=== PATIENT | male | born 1945 | race Caucasian/White ===

== ENCOUNTER 2017-03-23 17:13 | Observation (INO) | payer BC, MEDICARE ==
[~2017-03-23] VITALS: Ht 190.5 cm; Wt 99.8 kg
[~2017-03-23 17:13] MED LIST: AMBIEN5 MG PO; ATENOLOL25 MG PO; BACTRIM DS1 TAB PO; CARAFATE1 G1 PO; CARAFATE1 GM PO; CELEBREX200 MG PO; GLUCOTROL5 MG PO; GLYBURIDE/METFO1 TAB PO; HYDROCO/APAP1 TA9 PO; HYDROMORPHON4 MG PO; JANUVIA100 MG PO; LANTUS100 MG/ML SC; LORTAB 7.57.5 MG/TAB OR; MORPHINE SUL30 M3 PO; PERCOCET1 TA2 PO; PHENERGAN25 MG/TAB PO; PREVACID30 M1 PO; RESTORIL15 M1 PO; TRAMADOL HYDROC50 MG PO; TRICOR145 MG PO; ZOCOR10 MG PO; [UNRECOGNIZED DRUG - CODE] PO; [UNRECOGNIZED DRUG - REMARK]
--- NOTE | 2017-03-23 17:35 | NUR ---
PT TO ROOM W/STEADY GAIT.
[2017-03-23 18:30] LABS: HEMATOCRIT 45.6 % (39.0-50.0); HEMOGLOBIN 15.6 g/dl (14.0-18.0); IMMATURE GRANULOCYTES 0.7 % (0.0-1.0); MEAN CELL VOLUME 87.2 fL CALC (80.0-100.0); MEAN CORPUSCULAR HGB 29.8 pG CALC (26.0-32.0); MEAN CORPUSCULAR HGB CONC 34.2 g/L CALC (32.0-36.0); NEUT# 6.14 thou/uL (1.82-7.42); RED BLOOD COUNT 5.23 mill/uL (4.70-6.10); RED CELL DISTRI WIDTH 11.9 % (11.5-15.5)
[2017-03-23 18:34] LABS: URINE BLOOD DIPSTICK NEGATIVE (NEGATIVE); URINE GLUCOSE - DIPSTICK 100 mg/dL (NEGATIVE); URINE KETONE TRACE mg/dL (NEGATIVE); URINE LEUK ESTERASE NEGATIVE (NEGATIVE); URINE NITRITE - DIPSTICK NEGATIVE (Negative); URINE PH 5.5 (4.5-8.0); URINE PROTEIN - DIPSTICK 30 mg/dL (NEG-TRACE); URINE SPECIFIC GRAVITY >=1.030
[2017-03-23 18:37] LABS: URINE BILIRUBIN - DIPSTICK NEGATIVE (NEGATIVE); URINE CLARITY HAZY; URINE COLOR DK. YELLOW
[2017-03-23 18:39] LABS: ALBUMIN 4.8 g/dL (3.2-5.0); ALKALINE PHOSPHATASE 47 u/l (38-126); AMYLASE 100 u/l (30-110); ANION GAP 21 (6-22 (CALC)); BILIRUBIN, TOTAL 1.4 mg/dL (0.0-1.4); BUN 17 mg/dL (8-23); BUN/CREATININE RATIO 16 (12-20 (CALC)); CALCIUM 10.6 mg/dL (8.4-10.2); CARBON DIOXIDE 22 mmol/l (22-30); CHLORIDE 104 mmol/l (95-108); CREATININE 1.1 mg/dL (0.7-1.3); GFR > 60 ML/MIN (>=60 (CALC)); GFR FOR AFR.AMER. > 60 ML/MIN (>=60 (CALC)); GLUCOSE 257 mg/dL (82-115); LIPASE 549 u/l (23-300); POTASSIUM 4.1 mmol/l (3.5-5.1); SGOT/AST 23 u/l (19-48); SGPT/ALT 27 u/l (11-66); SODIUM 143 mmol/l (137-146); TOTAL PROTEIN 8.2 g/dL (6.3-8.2)
[2017-03-23 18:40] LABS: URINE RBC 0-2 RBC/hpf (0-5); URINE WBC 0-2 WBC/hpf (0-5)
[2017-03-23 18:41] LABS: URINE AMORPH SEDIMENT FEW hpf (NONE-FER)
[2017-03-23 18:51] LABS: MYOGLOBIN 41 ng/mL (0 - 121)
--- NOTE | 2017-03-23 20:00 | NUR ---
PT HAS BEEN MEDICATED FOR PAIN TWICE DURING HIS STAY, HAS RECEIVED ALSO ABX AND IVF. PAIN MED DOES HELP FOR A COUPLE OF HOURS. PT AWARE OF PENDING ADMISSION.
[2017-03-23] MEDS ORDERED: METFORMIN500 MG PO (20:16)
[2017-03-23 20:22] LABS: BARBITURATES NEGATIVE (NEGATIVE); COCAINE NEGATIVE (NEGATIVE); METHADONE NEGATIVE (NEGATIVE); OXCYCODONE NEGATIVE (NEGATIVE); TETRAHYDROCANNABIONOL NEGATIVE (NEGATIVE); TRICYLIC ANTIDEPRESSANTS NEGATIVE (NEGATIVE)
--- NOTE | 2017-03-23 20:54 | NUR ---
male pt received to [facility] accompanied by Fabricio Guzmán RN in stable condition; ambulatory to scale then bed with steady gait; admission assessment completed at this time; c/c abd pain and vomiting for 5 days; pt alert and oriented; complaints of pain rating 4/10; no n/v noted; resp even and unlabored; lungs clear; skin color wnl; ra; hr reg; strong pulses; no edema noted; abd soft/tender with bs present; admits to abd pain in all quads; #20 in lw flushed and patent; no redness or edema noted at site; abrasion noted to lateral rle (scab); plan of care/meds explained; npo/diet explained; oriented to bed and call light system; chewing tobacco noted at bedside; tobacco policy explained; call light within reach; will continue to monitor
--- NOTE | 2017-03-23 21:04 | NUR ---
PT TAKEN TO ROOM 261 WITHOUT INCIDENT, REPORT WAS TO RADHA BRYANT.
[2017-03-23 22:30] VITALS: BP 132/55
--- NOTE | 2017-03-24 00:05 | NUR ---
resting in bed with eyes closed; no distress noted; iv patent; no redness or edema noted at site; call light within reach; will continue to monitor
--- NOTE | 2017-03-24 03:20 | NUR ---
awake; complaints of abd pain rating 9/10; medicated with morphine as per orders; iv patent; no redness or edema noted at site; will continue to monitor
--- NOTE | 2017-03-24 03:59 | NUR ---
awake in bed; admits to pain relief; no distress noted; iv patent; no redness or edema noted at site; call light within reach; will continue to monitor
[2017-03-24 04:05] VITALS: BP 109/69
--- NOTE | 2017-03-24 04:45 | NUR ---
mechanical laboratory technician at bedside for am labs
--- NOTE | 2017-03-24 05:57 | NUR ---
awake in bed conversing on cell phone; no distress noted; offers no complaints; iv patent; no redness or edema noted at site; bed in lowest position; call light within reach
[2017-03-24 06:29] LABS: ALBUMIN 3.8 g/dL (3.2-5.0); ALKALINE PHOSPHATASE 33 u/l (38-126); AMYLASE 51 u/l (30-110); ANION GAP 16 (6-22 (CALC)); BILIRUBIN, TOTAL 1.1 mg/dL (0.0-1.4); BUN 17 mg/dL (8-23); BUN/CREATININE RATIO 14 (12-20 (CALC)); CALCIUM 9.8 mg/dL (8.4-10.2); CALCULATED LDLCHOLESTEROL 77 mg/dL (62-129 (CALC)); CARBON DIOXIDE 26 mmol/l (22-30); CHLORIDE 107 mmol/l (95-108); CHOLESTEROL HDL RATIO 6.1 (<4.4 (CALC)); CREATININE 1.2 mg/dL (0.7-1.3); GFR 60 ML/MIN (>=60 (CALC)); GFR FOR AFR.AMER. > 60 ML/MIN (>=60 (CALC)); GLUCOSE 100 mg/dL (82-115); HDL CHOLESTEROL 24 mg/dL (>=40); LIPASE 342 u/l (23-300); MAGNESIUM 1.4 mg/dL (1.6-2.3); POTASSIUM 4.1 mmol/l (3.5-5.1); SGOT/AST 16 u/l (19-48); SGPT/ALT 26 u/l (11-66); SODIUM 144 mmol/l (137-146); TOTAL CHOLESTEROL 150 mg/dl (0-199); TOTAL PROTEIN 6.5 g/dL (6.3-8.2); TRIGLYCERIDES REFLEX TO dLDL 244 mg/dl (30-149); VLDL CHOLESTROL 49 mg/dl (0-38 (CALC))
--- NOTE | 2017-03-24 07:00 | NUR ---
BEDSIDE REPORT RECIEVED FROM ANNETTE GARCIA. PT RESTING IN BED WITH NO COMPLAINT OF PAIN. IV PATENT. RESP EVEN AND UNLABORED. SAFETY PRECAUTIONS REINFORCED. CALL LIGHT WITHIN REACH. WILL CONTINUE TO MONITOR.
[2017-03-24 08:04] VITALS: BP 118/74
[2017-03-24 09:02] VITALS: BP 118/74
--- NOTE | 2017-03-24 13:35 | NUR ---
Discharge instructions given. Patient verbalizes understanding of same. Discharged in stable condition via Ambulatory to Home with family. All belongings sent with pt.
== END 2017-03-24 13:34 | disposition home or self-care (01) | DRG 440 ==
LOC: ED 17:13 → ED-I 19:55 → ED 20:12 → MS2 20:13
PROVIDERS: Emergency Medicine; ADMIT Internal Medicine; ATTEND Internal Medicine
DX: K85.20 Alcohol induced acute pancreatitis without necrosis or infection (principal); E11.9 Type 2 diabetes mellitus without complications; M06.9 Rheumatoid arthritis, unspecified; E83.42 Hypomagnesemia; K86.0 Alcohol-induced chronic pancreatitis; I10 Essential (primary) hypertension; E78.1 Pure hyperglyceridemia; N20.0 Calculus of kidney; K21.9 Gastro-esophageal reflux disease without esophagitis; F17.220 Nicotine dependence, chewing tobacco, uncomplicated; Z79.4 Long term (current) use of insulin
CPT/HCPCS: G0378; S0164

== ENCOUNTER 2017-08-10 15:07 | Emergency (ER) | payer MEDICARE ==
[~2017-08-10] VITALS: Ht 190.5 cm; Wt 108.0 kg
[~2017-08-10 15:07] MED LIST changes: +METFORMIN500 MG PO
[2017-08-10] MEDS ORDERED: LANTUS100 UNIT/M (16:12)
[2017-08-10] MEDS ORDERED: HYDROCO/APAP1 TA9 PO (16:59)
[2017-08-10] MEDS ORDERED: MOTRIN400 MG PO (16:59)
[2017-08-10 17:14] VITALS: BP 121/69
== END 2017-08-10 17:18 | disposition home or self-care (01) ==
LOC: ED 15:07
DX: M79.621 Pain in right upper arm (principal); I10 Essential (primary) hypertension; E78.5 Hyperlipidemia, unspecified; E11.9 Type 2 diabetes mellitus without complications; M19.90 Unspecified osteoarthritis, unspecified site; G51.0 Bell's palsy; F17.220 Nicotine dependence, chewing tobacco, uncomplicated; W55.29XA Other contact with cow, initial encounter; Y93.K9 Activity, other involving animal care; Y92.73 Farm field as the place of occurrence of the external cause; Z85.46 Personal history of malignant neoplasm of prostate

== ENCOUNTER 2017-12-22 05:40 | Emergency (ER) | payer MEDICARE ==
[~2017-12-22] VITALS: Ht 193 cm; Wt 97.6 kg
[~2017-12-22 05:40] MED LIST changes: +LANTUS100 UNIT/M; +MOTRIN400 MG PO
[2017-12-22 06:39] LABS: ALKALINE PHOSPHATASE 41 u/l (38-126); AMYLASE 104 u/l (30-110); ANION GAP 21 (6-22 (CALC)); BILIRUBIN, TOTAL 1.5 mg/dL (0.0-1.4); BUN 24 mg/dL (8-23); BUN/CREATININE RATIO 17 (12-20 (CALC)); CARBON DIOXIDE 30 mmol/l (22-30); CHLORIDE 97 mmol/l (95-108); CREATININE 1.5 mg/dL (0.7-1.3); GFR 46 ML/MIN (>=60 (CALC)); GFR FOR AFR.AMER. 56 ML/MIN (>=60 (CALC)); LIPASE 604 u/l (23-300); SGOT/AST 18 u/l (19-48); SGPT/ALT 22 u/l (11-66); SODIUM 144 mmol/l (137-146)
[2017-12-22 06:40] LABS: ALBUMIN 4.7 g/dL (3.2-5.0); HEMATOCRIT 45.8 % (39.0-50.0); HEMOGLOBIN 15.8 g/dl (14.0-18.0); IMMATURE GRANULOCYTES 0.5 % (0.0-5.0); MEAN CELL VOLUME 91.8 fL CALC (80.0-100.0); MEAN CORPUSCULAR HGB 31.7 pG CALC (26.0-32.0); MEAN CORPUSCULAR HGB CONC 34.5 g/L CALC (32.0-36.0); NEUT# 5.44 thou/uL (1.82-7.42); RED BLOOD COUNT 4.99 mill/uL (4.70-6.10); RED CELL DISTRI WIDTH 12.2 % (11.5-15.5); TOTAL PROTEIN 8.1 g/dL (6.3-8.2)
[2017-12-22 06:51] LABS: MYOGLOBIN 90 ng/mL (0 - 121)
[2017-12-22] MEDS ORDERED: DILAUDID4 MG PO (08:00)
[2017-12-22 09:09] LABS: URINE BLOOD DIPSTICK NEGATIVE (NEGATIVE); URINE COLOR YELLOW; URINE GLUCOSE - DIPSTICK >=1000 mg/dL (NEGATIVE); URINE KETONE 15 mg/dL (NEGATIVE); URINE LEUK ESTERASE NEGATIVE (NEGATIVE); URINE NITRITE - DIPSTICK NEGATIVE (Negative); URINE PROTEIN - DIPSTICK TRACE mg/dL (NEG-TRACE); URINE UROBILINOGEN - DIPSTICK >=8.0 E.U./dL (0.2)
[2017-12-22 09:13] LABS: URINE BILIRUBIN - DIPSTICK MODERATE (NEGATIVE); URINE CLARITY CLEAR
[2017-12-22 09:15] LABS: BARBITURATES NEGATIVE (NEGATIVE); COCAINE NEGATIVE (NEGATIVE); METHADONE NEGATIVE (NEGATIVE); OXCYCODONE NEGATIVE (NEGATIVE); TETRAHYDROCANNABIONOL NEGATIVE (NEGATIVE); TRICYLIC ANTIDEPRESSANTS NEGATIVE (NEGATIVE)
[2017-12-22] MEDS ORDERED: PROTONIX40 MG PO (12:01)
[2017-12-22] MEDS ORDERED: ZOFRAN4 MG/TAB PO (12:01)
[2017-12-22 12:30] VITALS: BP 149/72
== END 2017-12-22 12:30 | disposition home or self-care (01) ==
LOC: ED 05:40
PROVIDERS: Emergency Medicine
DX: K29.80 Duodenitis without bleeding (principal); K85.90 Acute pancreatitis without necrosis or infection, unspecified; I10 Essential (primary) hypertension; M19.90 Unspecified osteoarthritis, unspecified site; E78.5 Hyperlipidemia, unspecified; E11.9 Type 2 diabetes mellitus without complications; G51.0 Bell's palsy; F17.220 Nicotine dependence, chewing tobacco, uncomplicated; Z85.46 Personal history of malignant neoplasm of prostate
CPT/HCPCS: S0164

== ENCOUNTER 2017-12-23 15:28 | Observation (INO) | payer MEDICARE ==
[~2017-12-23] VITALS: Ht 193 cm; Wt 98.0 kg
[~2017-12-23 15:28] MED LIST changes: +DILAUDID4 MG PO; +PROTONIX40 MG PO; +ZOFRAN4 MG/TAB PO
[2017-12-23 16:05] LABS: HEMATOCRIT 44.8 % (39.0-50.0); HEMOGLOBIN 15.6 g/dl (14.0-18.0); IMMATURE GRANULOCYTES 0.5 % (0.0-5.0); MEAN CELL VOLUME 91.2 fL CALC (80.0-100.0); MEAN CORPUSCULAR HGB 31.8 pG CALC (26.0-32.0); MEAN CORPUSCULAR HGB CONC 34.8 g/L CALC (32.0-36.0); NEUT# 6.35 thou/uL (1.82-7.42); RED BLOOD COUNT 4.91 mill/uL (4.70-6.10)
[2017-12-23 16:29] LABS: ALBUMIN 4.6 g/dL (3.2-5.0); ALKALINE PHOSPHATASE 41 u/l (38-126); AMYLASE 115 u/l (30-110); ANION GAP 16 (6-22 (CALC)); BUN 27 mg/dL (8-23); BUN/CREATININE RATIO 17 (12-20 (CALC)); CARBON DIOXIDE 28 mmol/l (22-30); CHLORIDE 99 mmol/l (95-108); CREATININE 1.6 mg/dL (0.7-1.3); GFR 43 ML/MIN (>=60 (CALC)); GFR FOR AFR.AMER. 52 ML/MIN (>=60 (CALC)); LIPASE 390 u/l (23-300); POTASSIUM 3.8 mmol/l (3.5-5.1); SGOT/AST 20 u/l (19-48); SGPT/ALT 23 u/l (11-66); SODIUM 139 mmol/l (137-146); TOTAL PROTEIN 8.3 g/dL (6.3-8.2)
[2017-12-23 16:40] LABS: MYOGLOBIN 71 ng/mL (0 - 121)
[2017-12-23 21:35] VITALS: BP 105/61
[2017-12-24 05:20] LABS: ANION GAP 13 (6-22 (CALC)); BUN 21 mg/dL (8-23); BUN/CREATININE RATIO 17 (12-20 (CALC)); CARBON DIOXIDE 27 mmol/l (22-30); CHLORIDE 103 mmol/l (95-108); CREATININE 1.3 mg/dL (0.7-1.3); GFR 54 ML/MIN (>=60 (CALC)); GFR FOR AFR.AMER. > 60 ML/MIN (>=60 (CALC)); MEAN CELL VOLUME 92.2 fL CALC (80.0-100.0); MEAN CORPUSCULAR HGB 31.7 pG CALC (26.0-32.0); MEAN CORPUSCULAR HGB CONC 34.4 g/L CALC (32.0-36.0); POTASSIUM 3.7 mmol/l (3.5-5.1); RED BLOOD COUNT 4.1 mill/uL (4.70-6.10); RED CELL DISTRI WIDTH 11.9 % (11.5-15.5); SODIUM 140 mmol/l (137-146)
[2017-12-24 05:21] LABS: HEMATOCRIT 37.8 % (39.0-50.0)
[2017-12-24 05:24] LABS: MAGNESIUM 1.8 mg/dL (1.6-2.3)
[2017-12-24 05:36] VITALS: BP 114/70
[2017-12-24 08:30] VITALS: BP 129/60
[2017-12-24 10:29] LABS: URINE BILIRUBIN - DIPSTICK NEGATIVE (NEGATIVE); URINE BLOOD DIPSTICK NEGATIVE (NEGATIVE); URINE COLOR YELLOW; URINE GLUCOSE - DIPSTICK 500 mg/dL (NEGATIVE); URINE KETONE TRACE mg/dL (NEGATIVE); URINE LEUK ESTERASE NEGATIVE (NEGATIVE); URINE NITRITE - DIPSTICK NEGATIVE (Negative); URINE PROTEIN - DIPSTICK TRACE mg/dL (NEG-TRACE); URINE UROBILINOGEN - DIPSTICK >=8.0 E.U./dL (0.2)
[2017-12-24 10:31] LABS: URINE CLARITY CLEAR
[2017-12-24 11:17] VITALS: BP 103/57
[2017-12-24 15:14] VITALS: BP 108/71
[2017-12-24 19:00] VITALS: BP 118/69
[2017-12-25 00:03] VITALS: BP 128/69
[2017-12-25 05:05] VITALS: BP 124/70
[2017-12-25 05:24] LABS: HEMATOCRIT 34.3 % (39.0-50.0); HEMOGLOBIN 11.7 g/dl (14.0-18.0); IMMATURE GRANULOCYTES 0.2 % (0.0-5.0); MEAN CELL VOLUME 92.2 fL CALC (80.0-100.0); MEAN CORPUSCULAR HGB 31.5 pG CALC (26.0-32.0); MEAN CORPUSCULAR HGB CONC 34.1 g/L CALC (32.0-36.0); NEUT# 2.33 thou/uL (1.82-7.42); RED BLOOD COUNT 3.72 mill/uL (4.70-6.10); RED CELL DISTRI WIDTH 11.9 % (11.5-15.5)
[2017-12-25 05:44] LABS: ANION GAP 12 (6-22 (CALC)); BUN 13 mg/dL (8-23); BUN/CREATININE RATIO 13 (12-20 (CALC)); CARBON DIOXIDE 23 mmol/l (22-30); CHLORIDE 109 mmol/l (95-108); GFR > 60 ML/MIN (>=60 (CALC)); GFR FOR AFR.AMER. > 60 ML/MIN (>=60 (CALC)); LIPASE 780 u/l (23-300); MAGNESIUM 1.8 mg/dL (1.6-2.3); POTASSIUM 3.9 mmol/l (3.5-5.1); SODIUM 140 mmol/l (137-146)
[2017-12-25 07:56] VITALS: BP 125/75
[2017-12-25 11:00] VITALS: BP 118/71
[2017-12-25 16:45] VITALS: BP 128/79
[2017-12-25 20:00] VITALS: BP 133/70
[2017-12-26 00:35] VITALS: BP 112/69
[2017-12-26 04:05] VITALS: BP 141/77
[2017-12-26 07:17] VITALS: BP 139/80
[2017-12-26 11:12] VITALS: BP 130/74
[2017-12-26 14:48] LABS: HEMATOCRIT 34.8 % (39.0-50.0); HEMOGLOBIN 11.9 g/dl (14.0-18.0); IMMATURE GRANULOCYTES 0.2 % (0.0-5.0); MEAN CELL VOLUME 92.1 fL CALC (80.0-100.0); MEAN CORPUSCULAR HGB 31.5 pG CALC (26.0-32.0); MEAN CORPUSCULAR HGB CONC 34.2 g/L CALC (32.0-36.0); NEUT# 2.64 thou/uL (1.82-7.42); RED BLOOD COUNT 3.78 mill/uL (4.70-6.10); RED CELL DISTRI WIDTH 11.9 % (11.5-15.5)
[2017-12-26] MEDS ORDERED: AMOXICILLIN500 M2 PO (14:49)
[2017-12-26] MEDS ORDERED: BIAXIN500 MG PO (14:49)
[2017-12-26] MEDS ORDERED: PREVACID30 M1 PO (14:51)
[2017-12-26] MEDS ORDERED: OXYCODONE10 M1 PO (15:01)
[2017-12-26] MEDS ORDERED: ZOFRAN ODT4 MG PO (15:01)
[2017-12-26 15:33] LABS: BUN 8 mg/dL (8-23); BUN/CREATININE RATIO 10 (12-20 (CALC)); CARBON DIOXIDE 22 mmol/l (22-30); CHLORIDE 107 mmol/l (95-108); CREATININE 0.9 mg/dL (0.7-1.3); GFR > 60 ML/MIN (>=60 (CALC)); GFR FOR AFR.AMER. > 60 ML/MIN (>=60 (CALC)); LIPASE 388 u/l (23-300); SODIUM 140 mmol/l (137-146)
[2017-12-26 15:34] LABS: ANION GAP 16 (6-22 (CALC)); POTASSIUM 4.7 mmol/l (3.5-5.1)
[2017-12-26 15:49] VITALS: BP 144/84
== END 2017-12-26 16:10 | disposition home or self-care (01) ==
LOC: ED 15:28 → ED-I 19:40 → ED 20:59 → MS2 21:00
PROVIDERS: Emergency Medicine; General Practice; Nurse Practitioner Family; ADMIT Internal Medicine; ATTEND Internal Medicine
DX: K29.80 Duodenitis without bleeding (principal); K85.90 Acute pancreatitis without necrosis or infection, unspecified; N17.9 Acute kidney failure, unspecified; E86.0 Dehydration; K86.1 Other chronic pancreatitis; I10 Essential (primary) hypertension; E78.5 Hyperlipidemia, unspecified; E11.9 Type 2 diabetes mellitus without complications; B96.81 Helicobacter pylori [H. pylori] as the cause of diseases classified elsewhere; K21.9 Gastro-esophageal reflux disease without esophagitis; N20.0 Calculus of kidney; M19.90 Unspecified osteoarthritis, unspecified site; F17.220 Nicotine dependence, chewing tobacco, uncomplicated; E87.2 Acidosis; F10.10 Alcohol abuse, uncomplicated; Z85.46 Personal history of malignant neoplasm of prostate; Z86.010 Personal history of colon polyps; R11.2 Nausea with vomiting, unspecified
CPT/HCPCS: S0164

== ENCOUNTER 2018-03-26 11:53 | Emergency (ER) | payer MEDICARE ==
[~2018-03-26] VITALS: Ht 193 cm; Wt 124.0 kg
[~2018-03-26 11:53] MED LIST changes: +AMOXICILLIN500 M2 PO; +BIAXIN500 MG PO; +OXYCODONE10 M1 PO; +ZOFRAN ODT4 MG PO
[2018-03-26 13:29] VITALS: BP 145/81
== END 2018-03-26 13:38 | disposition home or self-care (01) ==
LOC: ED 11:53
DX: S93.402A Sprain of unspecified ligament of left ankle, initial encounter (principal); S90.02XA Contusion of left ankle, initial encounter; I10 Essential (primary) hypertension; E78.5 Hyperlipidemia, unspecified; E11.9 Type 2 diabetes mellitus without complications; F17.220 Nicotine dependence, chewing tobacco, uncomplicated; W17.2XXA Fall into hole, initial encounter; Y92.009 Unspecified place in unspecified non-institutional (private) residence as the place of occurrence of the external cause

== ENCOUNTER 2018-11-01 21:22 | Emergency (ER) | payer MEDICARE ==
[~2018-11-01] VITALS: Ht 193 cm; Wt 100.0 kg
[2018-11-01 21:54] LABS: IMMATURE GRANULOCYTES 0.5 % (0.0-5.0); MEAN CELL VOLUME 90.8 fL CALC (80.0-100.0); MEAN CORPUSCULAR HGB 30.3 pG CALC (26.0-32.0); MEAN CORPUSCULAR HGB CONC 33.3 g/L CALC (32.0-36.0); NEUT# 3.39 thou/uL (1.82-7.42); RED BLOOD COUNT 4.59 mill/uL (4.70-6.10); RED CELL DISTRI WIDTH 12.4 % (11.5-15.5)
[2018-11-01 21:55] LABS: HEMATOCRIT 41.7 % (39.0-50.0); HEMOGLOBIN 13.9 g/dl (14.0-18.0)
[2018-11-01 22:15] LABS: ALBUMIN 4.4 g/dL (3.2-5.0); ALKALINE PHOSPHATASE 45 u/l (38-126); BUN 17 mg/dL (8-23); CHLORIDE 105 mmol/l (95-108); POTASSIUM 4.1 mmol/l (3.5-5.1); SGOT/AST 19 u/l (19-48); SODIUM 139 mmol/l (137-146); TOTAL PROTEIN 7.4 g/dL (6.3-8.2)
[2018-11-01 22:17] LABS: ANION GAP 21 (6-22 (CALC)); BILIRUBIN, TOTAL 0.7 mg/dL (0.0-1.4); BUN/CREATININE RATIO 7 (12-20 (CALC)); CARBON DIOXIDE 17 mmol/l (22-30); CREATININE 2.6 mg/dL (0.7-1.3); GFR 24 ML/MIN (>=60 (CALC)); GFR FOR AFR.AMER. 30 ML/MIN (>=60 (CALC))
[2018-11-01 22:27] LABS: MYOGLOBIN 128 ng/mL (0 - 121)
[2018-11-02 02:28] LABS: URINE BILIRUBIN - DIPSTICK NEGATIVE (NEGATIVE); URINE BLOOD DIPSTICK NEGATIVE (NEGATIVE); URINE COLOR YELLOW; URINE GLUCOSE - DIPSTICK >=1000 mg/dL (NEGATIVE); URINE KETONE NEGATIVE (NEGATIVE); URINE LEUK ESTERASE NEGATIVE (NEGATIVE); URINE NITRITE - DIPSTICK NEGATIVE (Negative); URINE PH 5.5 (4.5-8.0); URINE PROTEIN - DIPSTICK TRACE mg/dL (NEG-TRACE); URINE UROBILINOGEN - DIPSTICK 0.2 E.U./dL (0.2)
[2018-11-02 03:00] VITALS: BP 111/64
== END 2018-11-02 03:22 | disposition home or self-care (01) ==
LOC: ED 21:22
PROVIDERS: Emergency Medicine
DX: S01.112A Laceration without foreign body of left eyelid and periocular area, initial encounter (principal); T14.8XXA Other injury of unspecified body region, initial encounter; F10.229 Alcohol dependence with intoxication, unspecified; I10 Essential (primary) hypertension; E11.9 Type 2 diabetes mellitus without complications; F17.200 Nicotine dependence, unspecified, uncomplicated; W55.12XA Struck by horse, initial encounter; Y92.009 Unspecified place in unspecified non-institutional (private) residence as the place of occurrence of the external cause; Z79.4 Long term (current) use of insulin

== ENCOUNTER 2018-11-26 21:50 | Inpatient (IN) | payer MEDICARE ==
[~2018-11-26] VITALS: Ht 193 cm; Wt 94.1 kg
[2018-11-26 22:20] LABS: HEMOGLOBIN 16.8 g/dl (14.0-18.0); IMMATURE GRANULOCYTES 0.5 % (0.0-5.0); MEAN CELL VOLUME 88.8 fL CALC (80.0-100.0); MEAN CORPUSCULAR HGB 30.4 pG CALC (26.0-32.0); MEAN CORPUSCULAR HGB CONC 34.3 g/L CALC (32.0-36.0); NEUT# 8.23 thou/uL (1.82-7.42); RED BLOOD COUNT 5.52 mill/uL (4.70-6.10); RED CELL DISTRI WIDTH 12.5 % (11.5-15.5)
[2018-11-26 22:42] LABS: ALBUMIN 4.9 g/dL (3.2-5.0); ALKALINE PHOSPHATASE 54 u/l (38-126); AMYLASE 309 u/l (30-110); BUN 30 mg/dL (8-23); BUN/CREATININE RATIO 13 (12-20 (CALC)); CHLORIDE 94 mmol/l (95-108); CREATININE 2.2 mg/dL (0.7-1.3); GFR 30 ML/MIN (>=60 (CALC)); GFR FOR AFR.AMER. 36 ML/MIN (>=60 (CALC)); POTASSIUM 4.5 mmol/l (3.5-5.1); SGOT/AST 22 u/l (19-48); SODIUM 139 mmol/l (137-146)
[2018-11-26 22:45] LABS: ANION GAP 21 (6-22 (CALC)); CARBON DIOXIDE 29 mmol/l (22-30)
[2018-11-26 22:47] LABS: BILIRUBIN, TOTAL 1.2 mg/dL (0.0-1.4)
[2018-11-26 22:54] LABS: MYOGLOBIN 84 ng/mL (0 - 121)
[2018-11-26 23:12] LABS: LIPASE 4861 u/l (23-300)
[2018-11-27 01:12] LABS: URINE BILIRUBIN - DIPSTICK NEGATIVE (NEGATIVE); URINE BLOOD DIPSTICK NEGATIVE (NEGATIVE); URINE GLUCOSE - DIPSTICK >=1000 mg/dL (NEGATIVE); URINE KETONE TRACE mg/dL (NEGATIVE); URINE LEUK ESTERASE NEGATIVE (NEGATIVE); URINE NITRITE - DIPSTICK NEGATIVE (Negative); URINE PH >=9.0 (4.5-8.0); URINE PROTEIN - DIPSTICK 100 mg/dL (NEG-TRACE); URINE SPECIFIC GRAVITY 1.015; URINE UROBILINOGEN - DIPSTICK 0.2 E.U./dL (0.2)
[2018-11-27 01:13] LABS: URINE COLOR DK. YELLOW
[2018-11-27 01:14] LABS: URINE EPITHELIAL CELLS FEW EPI/hpf (0-FEW); URINE MUCUS MODERATE hpf (NONE-FEW)
[2018-11-27 02:16] VITALS: BP 151/84
[2018-11-27 04:00] VITALS: BP 159/81
[2018-11-27 05:52] LABS: HEMATOCRIT 48.3 % (39.0-50.0); HEMOGLOBIN 16.4 g/dl (14.0-18.0); IMMATURE GRANULOCYTES 0.4 % (0.0-5.0); MEAN CELL VOLUME 90.1 fL CALC (80.0-100.0); MEAN CORPUSCULAR HGB 30.6 pG CALC (26.0-32.0); NEUT# 7.5 thou/uL (1.82-7.42); RED BLOOD COUNT 5.36 mill/uL (4.70-6.10); RED CELL DISTRI WIDTH 12.6 % (11.5-15.5)
[2018-11-27 05:57] LABS: ALBUMIN 4.1 g/dL (3.2-5.0); CREATININE 2.6 mg/dL (0.7-1.3); POTASSIUM 4.6 mmol/l (3.5-5.1); TOTAL PROTEIN 6.9 g/dL (6.3-8.2)
[2018-11-27 06:00] LABS: BILIRUBIN, TOTAL 2.5 mg/dL (0.0-1.4)
[2018-11-27 09:50] LABS: MAGNESIUM 1.9 mg/dL (1.6-2.3)
[2018-11-27 10:56] VITALS: BP 155/84
[2018-11-27 11:20] VITALS: BP 159/87
[2018-11-27] MEDS ORDERED: ATENOLOL50 MG PO (12:18)
[2018-11-27] MEDS ORDERED: GLIPIZIDE ER5 MG PO (12:19)
[2018-11-27] MEDS ORDERED: FENOFIBRATE145 MG PO (12:19)
[2018-11-27] MEDS ORDERED: SIMVASTATIN10 MG PO (12:20)
[2018-11-27] MEDS ORDERED: PANTOPRAZOLE SO40 M1 PO (12:20)
[2018-11-27] MEDS ORDERED: METFORMIN500 MG PO (12:21)
[2018-11-27] MEDS ORDERED: HYDROMORPHON4 MG PO (12:24)
[2018-11-27] MEDS ORDERED: CELEBREX100 M1 PO (12:25)
[2018-11-27] MEDS ORDERED: RESTORIL15 MG PO (12:26)
[2018-11-27] MEDS ORDERED: BASAGLAR K100 UNIT/M SC (12:26)
[2018-11-27 15:15] VITALS: BP 129/78
[2018-11-27 19:00] VITALS: BP 140/77
[2018-11-28] VITALS: BP 144/81
[2018-11-28 04:00] VITALS: BP 109/63
[2018-11-28 05:26] LABS: HEMATOCRIT 42.9 % (39.0-50.0); IMMATURE GRANULOCYTES 0.5 % (0.0-5.0); MEAN CELL VOLUME 94.7 fL CALC (80.0-100.0); MEAN CORPUSCULAR HGB 30.9 pG CALC (26.0-32.0); MEAN CORPUSCULAR HGB CONC 32.6 g/L CALC (32.0-36.0); NEUT# 8.36 thou/uL (1.82-7.42); RED BLOOD COUNT 4.53 mill/uL (4.70-6.10)
[2018-11-28 05:40] LABS: CREATININE 2.1 mg/dL (0.7-1.3); MAGNESIUM 1.8 mg/dL (1.6-2.3); POTASSIUM 4.5 mmol/l (3.5-5.1)
[2018-11-28 08:30] VITALS: BP 139/79
[2018-11-28 10:40] VITALS: BP 123/74
[2018-11-28 15:16] VITALS: BP 112/66
[2018-11-28 19:22] VITALS: BP 144/64
[2018-11-29 00:26] VITALS: BP 121/61
[2018-11-29 03:22] VITALS: BP 110/56
[2018-11-29 05:35] LABS: IMMATURE GRANULOCYTES 0.4 % (0.0-5.0); MEAN CELL VOLUME 94.4 fL CALC (80.0-100.0); MEAN CORPUSCULAR HGB 30.3 pG CALC (26.0-32.0); MEAN CORPUSCULAR HGB CONC 32.1 g/L CALC (32.0-36.0); NEUT# 4.79 thou/uL (1.82-7.42); RED BLOOD COUNT 3.73 mill/uL (4.70-6.10); RED CELL DISTRI WIDTH 12.9 % (11.5-15.5)
[2018-11-29 05:48] LABS: ANION GAP 11 (6-22 (CALC)); BUN 31 mg/dL (8-23); BUN/CREATININE RATIO 23 (12-20 (CALC)); CARBON DIOXIDE 26 mmol/l (22-30); CHLORIDE 105 mmol/l (95-108); CREATININE 1.3 mg/dL (0.7-1.3); GFR 54 ML/MIN (>=60 (CALC)); GFR FOR AFR.AMER. > 60 ML/MIN (>=60 (CALC)); MAGNESIUM 1.7 mg/dL (1.6-2.3); POTASSIUM 3.8 mmol/l (3.5-5.1); SODIUM 138 mmol/l (137-146)
[2018-11-29 06:18] LABS: HEMATOCRIT 35.2 % (39.0-50.0); HEMOGLOBIN 11.3 g/dl (14.0-18.0)
[2018-11-29 07:50] VITALS: BP 117/61
[2018-11-29 11:01] VITALS: BP 133/76
[2018-11-29 15:09] VITALS: BP 124/64
[2018-11-29 19:06] VITALS: BP 131/64
[2018-11-30] VITALS: BP 101/56
[2018-11-30 03:45] VITALS: BP 91/64
[2018-11-30 06:00] LABS: HEMATOCRIT 34.7 % (39.0-50.0); HEMOGLOBIN 11.5 g/dl (14.0-18.0); MEAN CELL VOLUME 93.5 fL CALC (80.0-100.0); MEAN CORPUSCULAR HGB CONC 33.1 g/L CALC (32.0-36.0); RED BLOOD COUNT 3.71 mill/uL (4.70-6.10); RED CELL DISTRI WIDTH 12.8 % (11.5-15.5)
[2018-11-30 06:19] LABS: ALKALINE PHOSPHATASE 42 u/l (38-126); ANION GAP 11 (6-22 (CALC)); BILIRUBIN, TOTAL 1.5 mg/dL (0.0-1.4); BUN 22 mg/dL (8-23); BUN/CREATININE RATIO 22 (12-20 (CALC)); CARBON DIOXIDE 25 mmol/l (22-30); CHLORIDE 107 mmol/l (95-108); GFR > 60 ML/MIN (>=60 (CALC)); GFR FOR AFR.AMER. > 60 ML/MIN (>=60 (CALC)); LIPASE 612 u/l (23-300); MAGNESIUM 1.7 mg/dL (1.6-2.3); POTASSIUM 3.4 mmol/l (3.5-5.1); SGOT/AST 29 u/l (19-48); SODIUM 140 mmol/l (137-146); TOTAL PROTEIN 5.8 g/dL (6.3-8.2)
[2018-11-30 06:30] LABS: ALBUMIN 2.9 g/dL (3.2-5.0)
[2018-11-30 07:45] VITALS: BP 121/70
[2018-11-30 11:05] VITALS: BP 120/64
[2018-11-30 14:50] VITALS: BP 120/72
[2018-11-30 19:00] VITALS: BP 129/77
[2018-12-01 00:04] VITALS: BP 119/58
[2018-12-01 04:00] VITALS: BP 121/66
[2018-12-01 06:26] LABS: ANION GAP 10 (6-22 (CALC)); BUN 13 mg/dL (8-23); BUN/CREATININE RATIO 14 (12-20 (CALC)); CARBON DIOXIDE 21 mmol/l (22-30); CHLORIDE 110 mmol/l (95-108); CREATININE 0.9 mg/dL (0.7-1.3); GFR > 60 ML/MIN (>=60 (CALC)); GFR FOR AFR.AMER. > 60 ML/MIN (>=60 (CALC)); LIPASE 728 u/l (23-300); POTASSIUM 3.7 mmol/l (3.5-5.1); SODIUM 138 mmol/l (137-146)
[2018-12-01 07:52] VITALS: BP 139/72
[2018-12-01 10:40] VITALS: BP 133/76
[2018-12-01 16:15] VITALS: BP 149/80
[2018-12-01 19:00] VITALS: BP 144/77
[2018-12-02 00:03] VITALS: BP 123/69
[2018-12-02 04:17] VITALS: BP 132/69
[2018-12-02 06:30] LABS: ALBUMIN 3.1 g/dL (3.2-5.0); ANION GAP 9 (6-22 (CALC)); BILIRUBIN, TOTAL 0.9 mg/dL (0.0-1.4); BUN 8 mg/dL (8-23); BUN/CREATININE RATIO 9 (12-20 (CALC)); CARBON DIOXIDE 24 mmol/l (22-30); CHLORIDE 108 mmol/l (95-108); CREATININE 0.9 mg/dL (0.7-1.3); GFR > 60 ML/MIN (>=60 (CALC)); GFR FOR AFR.AMER. > 60 ML/MIN (>=60 (CALC)); LIPASE 806 u/l (23-300); SGOT/AST 26 u/l (19-48); SODIUM 138 mmol/l (137-146); TOTAL PROTEIN 6.1 g/dL (6.3-8.2)
[2018-12-02 06:32] LABS: ALKALINE PHOSPHATASE 64 u/l (38-126)
[2018-12-02 07:46] VITALS: BP 126/73
[2018-12-02 11:04] VITALS: BP 129/73
[2018-12-02] MEDS ORDERED: SUCRALFATE1 GM/10 ML PO (14:45)
[2018-12-02] MEDS ORDERED: CREON12000 UNT PO (14:45)
[2018-12-02] MEDS ORDERED: HYDROMORPHON4 MG PO (14:45)
== END 2018-12-02 15:34 | disposition home or self-care (01) | DRG 439 ==
LOC: ED 21:50 → ED-I 22:28 → ED 22:28 → ED-I 23:22 → ED 11-27 01:19 → MS2 11-27 01:20
PROVIDERS: Emergency Medicine; Internal Medicine; Nurse Practitioner Family; ADMIT Internal Medicine; ATTEND Internal Medicine
DX: K85.20 Alcohol induced acute pancreatitis without necrosis or infection (principal); N17.9 Acute kidney failure, unspecified; K86.0 Alcohol-induced chronic pancreatitis; F10.10 Alcohol abuse, uncomplicated; K29.20 Alcoholic gastritis without bleeding; E86.0 Dehydration; E83.52 Hypercalcemia; I10 Essential (primary) hypertension; D64.9 Anemia, unspecified; D69.59 Other secondary thrombocytopenia; E11.649 Type 2 diabetes mellitus with hypoglycemia without coma; M19.90 Unspecified osteoarthritis, unspecified site; E78.5 Hyperlipidemia, unspecified; G89.4 Chronic pain syndrome; K21.9 Gastro-esophageal reflux disease without esophagitis; N20.0 Calculus of kidney; F17.220 Nicotine dependence, chewing tobacco, uncomplicated; Z79.4 Long term (current) use of insulin

== ENCOUNTER 2019-05-12 | Emergency (ER) | payer MEDICARE ==
[~2019-05-12] MED LIST changes: +ATENOLOL50 MG PO; +BASAGLAR K100 UNIT/M SC; +CELEBREX100 M1 PO; +CREON12000 UNT PO; +FENOFIBRATE145 MG PO; +GLIPIZIDE ER5 MG PO; +PANTOPRAZOLE SO40 M1 PO; +RESTORIL15 MG PO; +SIMVASTATIN10 MG PO; +SUCRALFATE1 GM/10 ML PO
[2019-05-12] MEDS ORDERED: CELEBREX200 M1 PO (17:55)
[2019-05-12 18:10] LABS: IMMATURE GRANULOCYTES 0.6 % (0.0-5.0); MEAN CORPUSCULAR HGB 29.7 pG CALC (26.0-32.0); MEAN CORPUSCULAR HGB CONC 34.8 g/L CALC (32.0-36.0); NEUT# 6.44 thou/uL (1.82-7.42); RED BLOOD COUNT 5.46 mill/uL (4.70-6.10); RED CELL DISTRI WIDTH 12.3 % (11.5-15.5)
[2019-05-12 18:13] LABS: GFR 60 ML/MIN (>=60 (CALC)); GFR FOR AFR.AMER. > 60 ML/MIN (>=60 (CALC))
[2019-05-12 18:34] LABS: HEMATOCRIT 46.6 % (39.0-50.0); HEMOGLOBIN 16.2 g/dl (14.0-18.0); MEAN CELL VOLUME 85.3 fL CALC (80.0-100.0)
[2019-05-12 18:43] LABS: ALKALINE PHOSPHATASE 62 u/l (38-126); BUN 20 mg/dL (8-23); BUN/CREATININE RATIO 18 (12-20 (CALC)); CARBON DIOXIDE 23 mmol/l (22-30); CREATININE 1.1 mg/dL (0.7-1.3); GFR > 60 ML/MIN (>=60 (CALC)); GFR FOR AFR.AMER. > 60 ML/MIN (>=60 (CALC)); LIPASE 751 u/l (23-300); POTASSIUM 3.6 mmol/l (3.5-5.1); SGOT/AST 24 u/l (19-48); SODIUM 139 mmol/l (137-146)
[2019-05-12 18:49] LABS: ALBUMIN 5.1 g/dL (3.2-5.0); ANION GAP 27 (6-22 (CALC)); BILIRUBIN, TOTAL 1.6 mg/dL (0.0-1.4); CHLORIDE 93 mmol/l (95-108); TOTAL PROTEIN 8.9 g/dL (6.3-8.2)
== END 2019-05-12 19:53 | disposition short-term general hospital (02) ==
PROVIDERS: Family Medicine
DX: K92.2 Gastrointestinal hemorrhage, unspecified (principal); E11.9 Type 2 diabetes mellitus without complications; I10 Essential (primary) hypertension; F17.200 Nicotine dependence, unspecified, uncomplicated; Z79.4 Long term (current) use of insulin
CPT/HCPCS: J2354; S0164

== ENCOUNTER 2019-11-21 05:42 | Emergency (ER) | payer MEDICARE ==
[~2019-11-21] VITALS: Ht 193 cm; Wt 110.0 kg
[~2019-11-21 05:42] MED LIST changes: +CELEBREX200 M1 PO
[2019-11-21 06:21] LABS: IMMATURE GRANULOCYTES 0.3 % (0.0-5.0); MEAN CELL VOLUME 86.1 fL CALC (80.0-100.0); MEAN CORPUSCULAR HGB 28.9 pG CALC (26.0-32.0); MEAN CORPUSCULAR HGB CONC 33.5 g/dL CAL (32.0-36.0); NEUT# 4.68 thou/uL (1.82-7.42); RED BLOOD COUNT 4.4 mill/uL (4.70-6.10); RED CELL DISTRI WIDTH 13.6 % (11.5-15.5)
[2019-11-21 06:22] LABS: HEMATOCRIT 37.9 % (39.0-50.0); HEMOGLOBIN 12.7 g/dl (14.0-18.0)
[2019-11-21 06:34] LABS: BUN 15 mg/dL (8-23); BUN/CREATININE RATIO 19 (12-20 (CALC)); CARBON DIOXIDE 21 mmol/l (22-30); CHLORIDE 102 mmol/l (95-108); CREATININE 0.8 mg/dL (0.7-1.3); GFR > 60 ML/MIN (>=60 (CALC)); GFR FOR AFR.AMER. > 60 ML/MIN (>=60 (CALC)); POTASSIUM 4.3 mmol/l (3.5-5.1)
[2019-11-21 06:35] LABS: ANION GAP 13 (6-22 (CALC)); SODIUM 132 mmol/l (137-146)
[2019-11-21] MEDS ORDERED: PREDNISONE50 MG PO ×3 (06:57→07:14)
[2019-11-21 07:06] VITALS: BP 137/76
[2019-11-21] MEDS ORDERED: HYDROMORPHON4 MG PO (07:07)
== END 2019-11-21 08:00 | disposition home or self-care (01) ==
LOC: ED 05:42
PROVIDERS: Family Medicine
DX: S63.592A Other specified sprain of left wrist, initial encounter (principal); I10 Essential (primary) hypertension; E11.9 Type 2 diabetes mellitus without complications; F17.200 Nicotine dependence, unspecified, uncomplicated; W19.XXXA Unspecified fall, initial encounter; Z79.4 Long term (current) use of insulin

== ENCOUNTER 2021-05-28 15:45 | Observation (INO) | payer MEDICARE ==
[~2021-05-28] VITALS: Ht 193 cm; Wt 89.0 kg
[~2021-05-28 15:45] MED LIST changes: +PREDNISONE50 MG PO
[2021-05-28 16:22] LABS: IMMATURE GRANULOCYTES 0.3 % (0.0-5.0); MEAN CELL VOLUME 87.6 fL CALC (80.0-100.0); MEAN CORPUSCULAR HGB CONC 33.1 g/dL CAL (32.0-36.0); NEUT# 9.73 thou/uL (1.82-7.42); RED BLOOD COUNT 5.65 mill/uL (4.70-6.10); RED CELL DISTRI WIDTH 12.5 % (11.5-15.5)
[2021-05-28 16:23] LABS: HEMATOCRIT 49.5 % (39.0-50.0); HEMOGLOBIN 16.4 g/dl (14.0-18.0)
[2021-05-28 16:33] LABS: ALBUMIN 4.6 g/dL (3.2-5.0); ALKALINE PHOSPHATASE 77 u/l (38-126); AMYLASE 98 u/l (30-110); BUN 17 mg/dL (8-23); BUN/CREATININE RATIO 14 (12-20 (CALC)); CHLORIDE 94 mmol/l (95-108); CREATININE 1.2 mg/dL (0.7-1.3); GFR 59 ML/MIN (>=60 (CALC)); GFR FOR AFR.AMER. > 60 ML/MIN (>=60 (CALC)); LIPASE 616 u/l (23-300); SGOT/AST 23 u/l (19-48); TOTAL PROTEIN 8.2 g/dL (6.3-8.2)
--- NOTE | 2021-05-28 16:34 | NUR ---
PATIENT ESCORTED TO ROOM VIA EMS. ADMINISTERED MEDICATIONS FOR VOMITING. APPLIED WARM BLANKETS. DIMMED LIGHTS. MD NOTIFIED.
[2021-05-28 16:39] LABS: ANION GAP 20 (6-22 (CALC)); BILIRUBIN, TOTAL 2.6 mg/dL (0.0-1.4); CARBON DIOXIDE 30 mmol/l (22-30); SODIUM 140 mmol/l (137-146)
--- NOTE | 2021-05-28 17:19 | NUR ---
Reassessment of patient completed. No distress noted.
--- NOTE | 2021-05-28 18:08 | NUR ---
Reassessment of patient completed. No distress noted.
--- NOTE | 2021-05-28 21:00 | NUR ---
DR SANDERS CALLED. WILL ORDER SURGICAL CONSULT. SPOKE WITH PT AND CLARIFIED THAT HE HAS ATTEMPTED FOOD INTAKE DAILY SINCE THURSDAY. ALWAYS HAS VOMITING. HAS BEEN DRINKING 7UP BUT HAS CONTINUED TO HAVE EMESIS. PT STATES LAST STOOL TODAY AROUND NOON AND WAS ALL WATER.
--- NOTE | 2021-05-28 21:14 | NUR ---
ATTEMPT TO CALL REPORT.
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
[2021-05-28 22:26] VITALS: BP 118/67
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
--- NOTE | 2021-05-28 22:35 | NUR ---
INFORMED OF VISITING POLICY. VERBALIZED UNDERSTANDING.
--- NOTE | 2021-05-28 23:20 | NUR ---
PT MEDICATED WITH DILAUDID FOR 6/10 GENERALIZED PAIN. PT DENIES OF ANY ADDITIONAL NEEDS. ALL SAFTEY PRECAUTIONS ARE IN PLACE WITH CALL LIGHT IN REACH. WILL CONTINUE TO MONITOR
[2021-05-29 04:00] VITALS: BP 132/58
--- NOTE | 2021-05-29 04:00 | NUR ---
PT RESTING IN SEMI FOWLERS POSITION. RESPIRATIONS ARE EVEN AND UNLABORED WITH NO DISTRESS NOTED ON ROOM AIR. #20G LW INFUSING WITH IVF PER ORDER. #22G RAC REMAINS IN LACE. TELE MONITORING IN PLACE. LEFT NARE NG TUBE WITH LOW INTERMITTED SUCTION. CLEAR DRAINAGE WITH BROWN SEDIMENT. PT C/O OF NOSE DISCOMFORT, PT INFORMED THAT NO MEDICATION FOR THE NOSE DISCOMFORTS WAS AVILABLE. PT VERBALIZED UNDERSTANDING. PT DENIES OF ANY ADDIITONAL NEEDS. ALL SAFTEY PRECAUTIONS ARE IN PLACE WITH CALL LIGHT IN REACH. WILL CONTINUE TO MONITOR.
--- NOTE | 2021-05-29 07:04 | NUR ---
REPORT FROM MARCK CASTRO. ASSUMED PT CARE.
[2021-05-29 07:50] VITALS: BP 114/55
--- NOTE | 2021-05-29 08:23 | NUR ---
PT SITTING UP IN BED, AGGITATED REQUESTING ICECHIP, DISCUSSED AND RE-EDUCATED ON NPO AND NG TUBE. PT MEDICATED FOR PAIN WITH PRN DILAUDID. NG TO LEFT NARE TO LIS, CLEAR OUTPUT NOTED IN TUBE. IVF INFUSING WITHOUT DIFFICULTY. UPHOLSTERY INSTRUCTOR IN PLACE. DISCUSSED POC AND SAFETY. CALL LIGHT WITHIN REACH. WILL CONTINUE TO MONITOR.
--- NOTE | 2021-05-29 08:23 | NUR ---
PT SITTING UP IN BED, AGITATED REQUESTING ICECHIP, DISCUSSED AND RE-EDUCATED ON NPO AND NG TUBE. PT MEDICATED FOR PAIN WITH PRN DILAUDID. NG TO LEFT NARE TO LIS, CLEAR OUTPUT NOTED IN TUBE. IVF INFUSING WITHOUT DIFFICULTY. PATIENT DAY COORDINATOR IN PLACE. DISCUSSED POC AND SAFETY. CALL LIGHT WITHIN REACH. WILL CONTINUE TO MONITOR.
[2021-05-29 10:29] VITALS: BP 118/65
--- NOTE | 2021-05-29 13:44 | NUR ---
PT MEDICATED FOR GENERALIZED PAIN 01/11. NG TO LEFT NARE TO LIS, CLEAR OUTPUT NOTED IN TUBING. PT DENIES ANY NAUSEA. ICE CHIPS PROVIDED UPON REQUEST, ICE CHIPS OK'D BY AND DR. FALL. IVF INFUSING WITHOUT DIFFICULTY. CALL LIGHT WITHIN REACH. WILL CONTINUE TO MONITOR.
[2021-05-29] MEDS ORDERED: ZOCOR10 MG PO (14:10)
[2021-05-29] MEDS ORDERED: TEMAZEPAM30 MG PO (14:13)
--- NOTE | 2021-05-29 14:38 | NUR ---
Patient medication reconciliation is complete, interviewed patient at bedside, also called patient's pharmacy ([facility]) spoke to PRESTON (Pharmacist) for more information about patient's home medications. Patient has NKDA.
[2021-05-29 15:35] VITALS: BP 126/70
--- NOTE | 2021-05-29 17:15 | NUR ---
PT NOTED RESTING IN BED. NO APPARENT DISTRESS NOTED. RESPIRATIONS EVEN AND UNLABORED. NG TO LEFT NARE REMAINS INTACT, TO LIS. CALL LIGHT WITHIN REACH. WILL CONTINUE TO MONITOR.
--- NOTE | 2021-05-29 19:20 | NUR ---
REPORT RECEIVED FROM Allison PIZARRO LPN, PATIENT CARE ASSUMED AT THIS TIME.
[2021-05-29 19:29] VITALS: BP 125/74
[2021-05-30 04:58] VITALS: BP 131/76
[2021-05-30 06:04] LABS: MEAN CELL VOLUME 89.2 fL CALC (80.0-100.0); MEAN CORPUSCULAR HGB 29.9 pG CALC (26.0-32.0); MEAN CORPUSCULAR HGB CONC 33.5 g/dL CAL (32.0-36.0); RED BLOOD COUNT 4.52 mill/uL (4.70-6.10); RED CELL DISTRI WIDTH 12.4 % (11.5-15.5)
[2021-05-30 06:09] LABS: HEMATOCRIT 40.3 % (39.0-50.0); HEMOGLOBIN 13.5 g/dl (14.0-18.0)
[2021-05-30 06:24] LABS: ANION GAP 18 (6-22 (CALC)); BUN 15 mg/dL (8-23); BUN/CREATININE RATIO 16 (12-20 (CALC)); CHLORIDE 104 mmol/l (95-108); CREATININE 0.9 mg/dL (0.7-1.3); GFR > 60 ML/MIN (>=60 (CALC)); GFR FOR AFR.AMER. > 60 ML/MIN (>=60 (CALC)); MAGNESIUM 1.3 mg/dL (1.6-2.3); POTASSIUM 3.5 mmol/l (3.5-5.1); SODIUM 141 mmol/l (137-146)
[2021-05-30 06:27] LABS: CARBON DIOXIDE 23 mmol/l (22-30)
--- NOTE | 2021-05-30 07:22 | NUR ---
PT UNCOMPLIANT, FOUND THROUGGHOUT MULTIPLE TIMES SUCKING ON MOUTH SWAB. PT FOUND MUTIPLE TIMES IN RESTROOM WITH NG TUBE DISCONNECTED FROM SUCCTION. OR REFUSING PT AT THIS TIME. IF PT IN NPO AT 7 AM THEY WILL SEE HIM LAST, PT REFUSING TO BE NPO.
--- NOTE | 2021-05-30 07:44 | NUR ---
Patient is screened for rehab intervention and no needs are identified at this time
--- NOTE | 2021-05-30 08:00 | NUR ---
SHIFT CHANGE REPORT, PT AWAKE ALERT AND ORIENTED SITTING UP IN BED, C/O PAIN AND DISCOMFORT TO THROAT AND ABD @ 10/10, NG TUBE TO LEFT NARE NOT WELL SECURED AND PT ASKING TO REMOVE TUBE AND THAT HE WANTS TO GO HOME NOW, MARKETING TRAFFIC COORDINATOR ROUNDED AND ORDERED TO REMOVE TUBE WHICH WAS DONE, PT REPORTS HE FEELS MUCH BETTER AFTER NG REMOVAL, IVF INFUSING, CALL MICHELE IN REACH AND BED LOCKED IN LOWEST POSITION.
[2021-05-30 08:10] VITALS: BP 154/78
[2021-05-30 11:01] VITALS: BP 164/82
--- NOTE | 2021-05-30 11:09 | NUR ---
DR NUGENT CALLED TO INQUIRE ABOUT LAST HOUR PT HAD ANY ORAL INTAKE, INFORMED NOT SINCE 0700, DR WILL GET HIM DOWN FOR PROCEDURE IN FEW HOURS.
--- NOTE | 2021-05-30 13:17 | NUR ---
OR TEAM HERE TO RECEIVE PT AT THIS TIME, PT INFORMED OF PROCEDURE AND STATES UNDERSTANDING, BEING TRANSPORTED OFF UNIT NOW VIA STRETCHER TO OR.
--- NOTE | 2021-05-30 15:04 | NUR ---
TRANSPORTED BACK TO UNIT VIA STRETCHER BY PACU TEAM, ALERT AND ORIENTED, TALKATIVE AND STATES HE IS READY TO GO HOME NOW, ANXIOUS, ADVISED HE HAS NOT BEEN D/C AND HE HAS TO BE MONITORED AFTER PROCEDURE FOR STABILITY, SETTLED IN BED, CALL MICHELE IN REACH, SIGNIFICANT OTHER AT BEDSIDE.
[2021-05-30 16:21] VITALS: BP 168/80
[2021-05-30 18:50] VITALS: BP 142/67
--- NOTE | 2021-05-30 21:28 | NUR ---
PATIENT RESTING IN BED AT THIS TIME-VOMITTED SMALL AMT OF WHITE FLUID-JUST FINISHED DRINKING MILK. MEDICATED WITH ZOFRAN 4MG IVP FOR N/V. PATIENT WITH C/O GENERALIZED PAIN-9/10 ON PAIN SCALE. MEDICATED WITH DILAUDID 0.5MG IVP FOR PAIN, IV SITE TO RIGHT HAND INTACT AND HEALTHY AT THIS TIME WITH GOOD BLOOD RETURN. IV PATENT AND INFUSING AT 100CC/HR. SAFETY PRECAUTIONS REINFORCED. CALL LIGHT IN REACH. WILL CONT TO MONITOR.
[2021-05-31 00:04] VITALS: BP 141/80
--- NOTE | 2021-05-31 00:42 | NUR ---
PATIENT RESTING IN BED-APPEARS SLEEPING WITH EYES CLOSED. RESPS ARE EVEN AND UNLABORED. IVF PATENT AND INFUSING VIA RIGHT HAND AT 100CC/HR. CALL LIGHT IN REACH. WILL CONT TO MONITOR.
--- NOTE | 2021-05-31 03:17 | NUR ---
PATIENT RESTING IN BED-AWAKE AND ALERT C/O GENERALIZED PAIN. MEDICATED WITH DILAUDID 0.5MG IVP FOR PAIN AND WITH ZOFRAN 4MG IVP FOR NAUSEA. IV SITE TO RIGHT HAND REMAINS HEALTHY WITH IVF NS PATENT AND INFUSING AT 100CC/HR. SAFETY PRECAUTIONS REINFORCED. CALL LIGHT IN REACH., WILL CONT TO MONITOR.
[2021-05-31 04:00] VITALS: BP 141/78
[2021-05-31 05:55] LABS: HEMATOCRIT 36.3 % (39.0-50.0); MEAN CELL VOLUME 89.6 fL CALC (80.0-100.0); MEAN CORPUSCULAR HGB 29.6 pG CALC (26.0-32.0); MEAN CORPUSCULAR HGB CONC 33.1 g/dL CAL (32.0-36.0); RED BLOOD COUNT 4.05 mill/uL (4.70-6.10); RED CELL DISTRI WIDTH 12.4 % (11.5-15.5)
[2021-05-31 05:59] LABS: ANION GAP 16 (6-22 (CALC)); BUN 8 mg/dL (8-23); BUN/CREATININE RATIO 12 (12-20 (CALC)); CARBON DIOXIDE 20 mmol/l (22-30); CHLORIDE 105 mmol/l (95-108); CREATININE 0.7 mg/dL (0.7-1.3); GFR > 60 ML/MIN (>=60 (CALC)); GFR FOR AFR.AMER. > 60 ML/MIN (>=60 (CALC)); POTASSIUM 3.5 mmol/l (3.5-5.1); SODIUM 137 mmol/l (137-146)
[2021-05-31 06:01] LABS: MAGNESIUM 1.8 mg/dL (1.6-2.3)
[2021-05-31 06:53] VITALS: BP 134/66
[2021-05-31 08:42] VITALS: BP 129/63
[2021-05-31] MEDS ORDERED: PROTONIX40 M2 PO (10:15)
[2021-05-31] MEDS ORDERED: REGLAN10 MG PO (10:16)
[2021-05-31 11:22] VITALS: BP 147/69
== END 2021-05-31 13:45 | disposition home or self-care (01) ==
LOC: ED 15:45 → MS2 19:47
PROVIDERS: Emergency Medicine; Nurse Practitioner; ADMIT Internal Medicine; ATTEND Internal Medicine
PROC: 0DB98ZX Excision of Duodenum, Via Natural or Artificial Opening Endoscopic, Diagnostic (ICD-10-PCS; principal; 2021-05-30)
DX: K31.5 Obstruction of duodenum (principal); K29.80 Duodenitis without bleeding; K29.70 Gastritis, unspecified, without bleeding; N17.9 Acute kidney failure, unspecified; E83.42 Hypomagnesemia; I10 Essential (primary) hypertension; E11.9 Type 2 diabetes mellitus without complications; E78.5 Hyperlipidemia, unspecified; K21.9 Gastro-esophageal reflux disease without esophagitis; K86.1 Other chronic pancreatitis; Z85.46 Personal history of malignant neoplasm of prostate; Z87.442 Personal history of urinary calculi; Z79.84 Long term (current) use of oral hypoglycemic drugs; Z79.4 Long term (current) use of insulin; Z20.822 Contact with and (suspected) exposure to COVID-19
CPT/HCPCS: G0378; J1650; J3475; Q9967; S0164

== ENCOUNTER 2021-07-02 02:37 | Emergency (ER) | payer MEDICARE ==
[~2021-07-02] VITALS: Ht 193 cm; Wt 122.0 kg
[~2021-07-02 02:37] MED LIST changes: +PROTONIX40 M2 PO; +REGLAN10 MG PO; +TEMAZEPAM30 MG PO
[2021-07-02] MEDS ORDERED: HYDROCO/APAP1 TA9 PO ×2 (04:44→04:47)
[2021-07-02 04:50] VITALS: BP 110/72
== END 2021-07-02 04:50 | disposition home or self-care (01) ==
LOC: ED 02:37
DX: S43.402A Unspecified sprain of left shoulder joint, initial encounter (principal); S50.02XA Contusion of left elbow, initial encounter; M19.012 Primary osteoarthritis, left shoulder; I10 Essential (primary) hypertension; E78.5 Hyperlipidemia, unspecified; E11.9 Type 2 diabetes mellitus without complications; W18.30XA Fall on same level, unspecified, initial encounter; Y92.009 Unspecified place in unspecified non-institutional (private) residence as the place of occurrence of the external cause; Z79.4 Long term (current) use of insulin; Z79.84 Long term (current) use of oral hypoglycemic drugs; Z85.46 Personal history of malignant neoplasm of prostate

== ENCOUNTER 2023-06-12 19:01 | Observation (INO) | payer MEDICARE ==
[2023-06-12] VITALS (16 sets, daily range): BP systolic 82–143; BP diastolic 53–91
[~2023-06-12] VITALS: Ht 193 cm; Wt 83.9 kg
[~2023-06-12 19:01] MED LIST changes: -BASAGLAR K100 UNIT/M SC; +LANTUS100 UNIT SC; -TEMAZEPAM30 MG PO; +XANAX0.5 MG PO
--- NOTE | 2023-06-12 19:45 | NUR ---
PATIENT TO RM 13 VIA W/C AT THIS TIME, TRIAGE ATTEMPTED, PATIENT APPEARED WITH INTERMITTENT DISORIENTATION, TIWITCHING TO (L) SIDE OF FACE, PATIENT VERBALIZED GENERALIZED WEAKNESS TO ENTIRE BODY, MD AT BEDSIDE, [facility] ATTEMPTED PATIENT UNABLE TO PERFORM MOVEMENTS, BILATERALLY, STROKE ALERT CALLED OVERHEAD, PATIENT TRANSPORTED TO CT AT THIS TIME, WITH BLEACH BOILER PACKER AND PRIMARY NURSE PRESENT.
[2023-06-12 20:13] LABS: BASO% 0.4 % (0-3); EOS% 3.7 % (0-8); HEMATOCRIT 40.8 % (39.0-50.0); HEMOGLOBIN 13.8 g/dl (14.0-18.0); IMMATURE GRANULOCYTES 0.1 % (0.0-5.0); LYMPH% 25.1 % (15-41); MEAN CORPUSCULAR HGB 27.9 pG CALC (26.0-32.0); MEAN CORPUSCULAR HGB CONC 33.8 g/dL CAL (32.0-36.0); MONO% 8.5 % (2-13); NEUT# 4.17 thou/uL (1.82-7.42); NEUT% 62.2 % (42-76); RED BLOOD COUNT 4.95 mill/uL (4.70-6.10); RED CELL DISTRI WIDTH 12.7 % (11.5-15.5)
[2023-06-12 20:16] LABS: MEAN CELL VOLUME 82.4 fL CALC (80.0-100.0)
[2023-06-12] MEDS ORDERED: SODIUM CHLORIDE 0.9% 1,000 ML IV ONE (20:20)
[2023-06-12 20:29] LABS: INTERNATIONAL NORMALIZED RATIO 1.1 RATIO (0.7-1.3); PROTHROMBIN TIME 10.8 SECONDS (9.0-12.5)
[2023-06-12 20:30] LABS: ALBUMIN 4.6 g/dL (3.2-5.0); ALKALINE PHOSPHATASE 104 u/l (38-126); CALCULATED LDLCHOLESTEROL 64 mg/dL (62-129 (CALC)); CHLORIDE 97 mmol/l (95-108); CHOLESTEROL HDL RATIO 3.3 (<4.4 (CALC)); CREATININE 1.1 mg/dL (0.7-1.3); GFR FOR AFR.AMER. > 60 ML/MIN (>=60 (CALC)); GFR OTHER RACES > 60 ML/MIN (>=60 (CALC)); HDL CHOLESTEROL 40 mg/dL (39.0-59.0); POTASSIUM 4.1 mmol/l (3.5-5.1); SGOT/AST 36 u/l (19-48); SODIUM 133 mmol/l (137-146); TOTAL CHOLESTEROL 133 mg/dl (0-199); TOTAL PROTEIN 7.6 g/dL (6.3-8.2); TOTAL TRIGLYCERIDES 146 mg/dl (0-149); VLDL CHOLESTROL 29 mg/dl (0-38 (CALC))
[2023-06-12 20:43] LABS: ANION GAP 14 (6-22 (CALC)); BILIRUBIN, TOTAL 0.9 mg/dL (0.2-1.3); BUN 31 mg/dL (8-23); BUN/CREATININE RATIO 28 (12-20 (CALC)); CARBON DIOXIDE 26 mmol/l (22-30)
[2023-06-13] VITALS (17 sets, daily range): BP systolic 79–120; BP diastolic 45–82
[2023-06-13 02:35] LABS: URINE BILIRUBIN - DIPSTICK Negative (NEGATIVE); URINE BLOOD DIPSTICK Negative (NEGATIVE); URINE COLOR Yellow; URINE GLUCOSE - DIPSTICK Negative (NEGATIVE); URINE KETONE Negative (NEGATIVE); URINE LEUK ESTERASE Negative (NEGATIVE); URINE NITRITE - DIPSTICK Negative (Negative); URINE PH 7.5 (4.5-8.0); URINE PROTEIN - DIPSTICK Negative (NEG-TRACE); URINE SPECIFIC GRAVITY 1.015
[2023-06-13] MEDS ORDERED: ASPIRIN 81 MG/TAB PO ONE (02:40)
--- NOTE | 2023-06-13 03:00 | NUR ---
900 EMPTIED FROM URINAL
[2023-06-13] MEDS ORDERED: SODIUM CHLORIDE 0.9% 1,000 ML IV PRN (03:25)
[2023-06-13] MEDS ORDERED: ACETAMINOPHEN 325 MG/TAB PO PRN (03:25)
[2023-06-13] MEDS ORDERED: MAGNESIUM HYDROXIDE 30 ML UDC PO PRN (03:25)
[2023-06-13] MEDS ORDERED: TEMAZEPAM PO ONE (03:25)
--- NOTE | 2023-06-13 04:34 | NUR ---
Patient glucose was checked when arrived 85 and the nurse was notified.
[2023-06-13] MEDS ORDERED: DEXTROSE 250 ML IV PRN ×3 (04:55→05:05)
[2023-06-13 05:53] LABS: BASO% 0.6 % (0-3); EOS% 5.1 % (0-8); HEMATOCRIT 34.9 % (39.0-50.0); IMMATURE GRANULOCYTES 0.4 % (0.0-5.0); LYMPH% 21.5 % (15-41); MEAN CELL VOLUME 82.5 fL CALC (80.0-100.0); MEAN CORPUSCULAR HGB 27.9 pG CALC (26.0-32.0); MEAN CORPUSCULAR HGB CONC 33.8 g/dL CAL (32.0-36.0); NEUT# 3.32 thou/uL (1.82-7.42); NEUT% 62.4 % (42-76); RED BLOOD COUNT 4.23 mill/uL (4.70-6.10); RED CELL DISTRI WIDTH 12.8 % (11.5-15.5)
[2023-06-13 06:08] LABS: ALKALINE PHOSPHATASE 75 u/l (38-126); ANION GAP 10 (6-22 (CALC)); BILIRUBIN, TOTAL 0.8 mg/dL (0.2-1.3); BUN 26 mg/dL (8-23); BUN/CREATININE RATIO 29 (12-20 (CALC)); CARBON DIOXIDE 26 mmol/l (22-30); CHLORIDE 104 mmol/l (95-108); CREATININE 0.9 mg/dL (0.7-1.3); GFR FOR AFR.AMER. > 60 ML/MIN (>=60 (CALC)); GFR OTHER RACES > 60 ML/MIN (>=60 (CALC)); MAGNESIUM 1.5 mg/dL (1.6-2.3); SGOT/AST 31 u/l (19-48); SODIUM 135 mmol/l (137-146)
[2023-06-13 06:13] LABS: ALBUMIN 3.5 g/dL (3.2-5.0)
[2023-06-13 06:40] LABS: HEMOGLOBIN 11.8 g/dl (14.0-18.0)
[2023-06-13] MEDS ORDERED: INSULIN LISPRO 100 UNITS/ML ML SC SCH (07:00)
--- NOTE | 2023-06-13 08:15 | NUR ---
BEDSIDE REPORT RECEIVED FROM OFF GOING NURSE. PATIENT RESTING IN BED. RESPIRATIONS EVEN AND UNLABORED ON ROOM AIR. PATIENT C/O HEADACHE BUT STATES "I FEEL BETTER THAN I DID". SAFETY MEASURES IN PLACE. CALL LIGHT WITHIN REACH.
[2023-06-13] MEDS ORDERED: INSULIN DETEMIR 100 UNITS/ML SC SCH (09:00)
[2023-06-13] MEDS ORDERED: ASPIRIN 81 MG/TAB PO SCH (09:00)
[2023-06-13] MEDS ORDERED: MIDAZOLAM HCL 2 MG/2 ML VIAL IV PRN (09:30)
[2023-06-13] MEDS ORDERED: ELIQUIS5 MG PO (10:28)
[2023-06-13] MEDS ORDERED: PROTONIX40 M2 PO (10:28)
[2023-06-13] MEDS ORDERED: MIDODRINE5 MG PO (10:29)
--- NOTE | 2023-06-13 12:38 | NUR ---
PATIENT AWAKE IN BED AT THIS TIME. PATIENT AZALEA TO VERBALIZE NEEDS. MEDICATED PRIOR TO MRI PER MD ORDER. PATIENT HAD NEURO CONSULT VIA TELEHEALTH. ORTHOSTATIC BLOOD PRESSURE COMPLETED. PATIENT DENIES DIZZINESS UPON STANDING AND IS STEADY ON HIS FEET. RESPIRATIONS EVEN AND UNLABORED ON ROOM AIR. SAFETY MEASURES IN PLACE.
[2023-06-13] MEDS ORDERED: KETOROLAC TROMETHAMINE 15 MG/ML SDV IV PRN (12:45)
[2023-06-13] MEDS ORDERED: ASPIRIN81 MG PO (15:37)
--- NOTE | 2023-06-13 16:52 | NUR ---
DISCHARGE INSTRUCTIONS GIVEN TO PATIENT. PATIENT ALERT AND ORIENTED AND ABLE TO VERBALIZE UNDERSTANDING. BOTH PERIPHERAL IVs AND TELEMETRY REMOVED. PATIENT WHEELED TO ENTRANCE WITH BELONGINGS IN HAND.
[2023-06-13] MEDS ORDERED: APIXABAN BASE 2.5 MG/TAB TAB PO SCH (21:00)
[2023-06-13] MEDS ORDERED: ENOXAPARIN SODIUM 40 MG/0.4 ML SYR SC SCH (21:00)
[2023-06-13] MEDS ORDERED: ATORVASTATIN CALCIUM 40 MG/TAB PO SCH (21:00)
== END 2023-06-13 16:50 | disposition home or self-care (01) ==
LOC: ED 19:01 → ED-I 06-13 02:33 → ED 06-13 02:43 → MS2 06-13 02:44
PROVIDERS: Family Medicine; ADMIT Student in an Organized Health Care Education/Training Program; ATTEND Student in an Organized Health Care Education/Training Program
DX: R41.0 Disorientation, unspecified (principal); I10 Essential (primary) hypertension; E11.65 Type 2 diabetes mellitus with hyperglycemia; E11.59 Type 2 diabetes mellitus with other circulatory complications; E78.5 Hyperlipidemia, unspecified; K21.9 Gastro-esophageal reflux disease without esophagitis; K86.0 Alcohol-induced chronic pancreatitis; F10.10 Alcohol abuse, uncomplicated; F17.220 Nicotine dependence, chewing tobacco, uncomplicated; Z85.46 Personal history of malignant neoplasm of prostate; Z79.84 Long term (current) use of oral hypoglycemic drugs; Z79.4 Long term (current) use of insulin
CPT/HCPCS: G0378; Q9967